=== PATIENT | male | born 1970 | race African-American/Black ===

== ENCOUNTER 2017-03-22 00:02 | Inpatient (IN) | payer MEDICAID ==
[~2017-03-22] VITALS: Ht 190.5 cm; Wt 163.3 kg
[~2017-03-22 00:02] MED LIST: ANTIVIRALS; EMTR1TAB11 PO; GABA-290 PO; RALT400T PO
[2017-03-22] MEDS ORDERED: MORPHINE SULFATE 4 MG/ML CPJ (NOT FOR IM USE) IV STA (04:26)
[2017-03-22] MEDS ORDERED: SODIUM CHLORIDE 0.9% 1,000 ML IV ONE (04:26)
[2017-03-22 04:57] LABS: CLARITY URINE CLOUDY (CLEAR); COLOR URINE ORANGE (YELLOW); GLUCOSE URINE TRACE (NEGATIVE); KETONES URINE NEGATIVE (NEGATIVE); LEUKOCYTE ESTERASE URINE 2+ (NEGATIVE); NITRITE URINE POSITIVE (NEGATIVE); OCCULT BLOOD URINE 3+ (NEGATIVE); PH URINE 5.5 (4.5-8.0); PROTEIN URINE 1+ (NEGATIVE); SPECIFIC GRAVITY URINE 1.028 (1.005-1.030); UROBILINOGEN URINE 0.2 E.U./dL (0.2-1.0)
[2017-03-22 04:58] LABS: INR 1.7; PROTHROMBIN TIME 18.1 sec (9.4-11.6)
[2017-03-22 05:00] LABS: BASOPHILS % 0.3 % (0.0-2.0); EOSINOPHILS % 0.4 % (0.0-5.0); LYMPHOCYTES % 16.6 % (20.0-50.0); MEAN PLATELET VOLUME 7.5 fl (7.4-10.4); MONOCYTES % 14.5 % (2.0-8.0); NEUTROPHILS % 68.2 % (40.0-76.0); PLATELET 71 x1000/uL (130-400); RED BLOOD CELL COUNT 2.58 mill/uL (4.7-6.1); RED CELL DISTRIBUTION WIDTH 15.7 % (11.6-14.6)
[2017-03-22 05:08] LABS: CARBON DIOXIDE 27 mEq/L (21-32); CHLORIDE 100 mEq/L (98-107)
[2017-03-22 05:22] LABS: HEMATOCRIT. 32.6 % (42.0-52.0); MEAN CORPUSCULAR HEMOGLOBIN 37.6 pg (28.0-32.0); MEAN CORPUSCULAR VOLUME 111.7 fL (80.0-94.0)
[2017-03-22 05:23] LABS: PLATELET ESTIMATE DECREASED
[2017-03-22 11:00] VITALS: BP 120/64
[2017-03-22] MEDS ORDERED: COMPLERA (11:37)
[2017-03-22] MEDS ORDERED: DOCU-138 PO (11:39)
[2017-03-22] MEDS ORDERED: DOXY100C2 PO (11:39)
[2017-03-22] MEDS ORDERED: HYDR-3280 MT (11:41)
[2017-03-22] MEDS ORDERED: ONDANSETRON HCL 4MG/2ML VIAL IV PRN (14:00)
[2017-03-22] MEDS ORDERED: CLONIDINE 0.1MG TABLET PO PRN (14:00)
[2017-03-22] MEDS ORDERED: IPRATROPIUM/ALBUTEROL 0.5-3(2.5)MG/3ML NEB INH PRN (14:00)
[2017-03-22] MEDS ORDERED: ACETAMINOPHEN 325MG TABLET PO PRN (14:00)
[2017-03-22] MEDS ORDERED: MORPHINE SULFATE 2 MG/ML CPJ (NOT FOR IM USE) IV PRN (14:00)
[2017-03-22] MEDS ORDERED: DIPHENHYDRAMINE 50MG/ML VIAL IV PRN (14:00)
[2017-03-22 15:07] LABS: HEPATITIS B SURFACE ANTIGEN NEGATIVE
[2017-03-22] MEDS: PANTOPRAZOLE SODIUM 40 MG/VIAL IV SCH (15:13)
[2017-03-22] MEDS: SODIUM CHLORIDE 0.9% 1,000 ML IV SCH (15:13)
[2017-03-22 15:36] LABS: HEPATITIS B CORE AB IGM NEGATIVE
[2017-03-22 15:37] LABS: HEPATITIS A AB IGM NEGATIVE (NEGATIVE)
[2017-03-22] MEDS: CEFTRIAXONE 1 G PREMIX 50 ML IV SCH (16:36)
[2017-03-22] MEDS ORDERED: RALTEGRAVIR 400MG TABLET PO SCH (17:00)
[2017-03-22] MEDS: RALTEGRAVIR 400MG TABLET PO SCH (18:30)
[2017-03-22 20:00] VITALS: BP 136/64
[2017-03-23] VITALS (13 sets, daily range): BP systolic 103–136; BP diastolic 51–67
[2017-03-23] MEDS: SODIUM CHLORIDE 0.9% 1,000 ML IV SCH ×2 (04:14→16:51)
[2017-03-23 05:52] LABS: PARTIAL THROMBOPLASTIN TIME 42.2 sec (23.4-31.0); PROTHROMBIN TIME 20.9 sec (9.4-11.6)
[2017-03-23 06:15] LABS: CARBON DIOXIDE 26 mEq/L (21-32); CHLORIDE 103 mEq/L (98-107); HDL CHOLESTEROL 13 mg/dL (40-59); LDL CHOLESTEROL 85 mg/dL (5-100)
[2017-03-23 07:25] LABS: BASOPHILS % 0.6 % (0.0-2.0); EOSINOPHILS % 1.5 % (0.0-5.0); HEMOGLOBIN. 10.1 g/dL (14.0-18.0); MEAN CORPUSCULAR HEMOGLOBIN 38.7 pg (28.0-32.0); MEAN CORPUSCULAR VOLUME 110.9 fL (80.0-94.0); MEAN PLATELET VOLUME 8.3 fl (7.4-10.4); MONOCYTES % 12.7 % (2.0-8.0); NEUTROPHILS % 56.2 % (40.0-76.0); PLATELET 78 x1000/uL (130-400); RED BLOOD CELL COUNT 2.61 mill/uL (4.7-6.1); RED CELL DISTRIBUTION WIDTH 15.4 % (11.6-14.6)
[2017-03-23] MEDS: PANTOPRAZOLE SODIUM 40 MG/VIAL IV SCH (09:00)
[2017-03-23] MEDS: DOCUSATE SODIUM 100MG CAPSULE PO SCH (09:00)
[2017-03-23] MEDS ORDERED: DOXYCYCLINE HYCLATE 100MG CAPSULE PO SCH (09:00)
[2017-03-23] MEDS: RALTEGRAVIR 400MG TABLET PO SCH (09:00)
[2017-03-23] MEDS ORDERED: MORPHINE SULFATE 4 MG/ML CPJ (NOT FOR IM USE) IV PRN (13:24)
[2017-03-23] MEDS: CEFTRIAXONE 1 G PREMIX 50 ML IV SCH (16:51)
[2017-03-23] MEDS: HYDROCODONE/ACETAMINOPHEN 5/325MG TABLET PO PRN (21:44)
[2017-03-23 22:00] LABS: INR 1.8; PARTIAL THROMBOPLASTIN TIME 36.5 sec (23.4-31.0)
[2017-03-24] VITALS (12 sets, daily range): BP systolic 98–133; BP diastolic 44–65
[2017-03-24 05:44] LABS: INR 1.8; PARTIAL THROMBOPLASTIN TIME 38.6 sec (23.4-31.0)
[2017-03-24 06:24] LABS: HEMOGLOBIN. 9.2 g/dL (14.0-18.0); MEAN CORPUSCULAR HEMOGLOBIN 39.8 pg (28.0-32.0); MEAN CORPUSCULAR VOLUME 112.9 fL (80.0-94.0); MEAN PLATELET VOLUME 7.4 fl (7.4-10.4); PLATELET 82 x1000/uL (130-400); RED CELL DISTRIBUTION WIDTH 15.2 % (11.6-14.6)
[2017-03-24 06:38] LABS: CARBON DIOXIDE 26 mEq/L (21-32); CHLORIDE 104 mEq/L (98-107)
[2017-03-24] MEDS: DOCUSATE SODIUM 100MG CAPSULE PO SCH (09:00)
[2017-03-24] MEDS: RALTEGRAVIR 400MG TABLET PO SCH (09:00)
[2017-03-24] MEDS ORDERED: IOHEXOL-300 100 ML BOTTLE ONE (09:49)
[2017-03-24] MEDS ORDERED: SIMETHICONE 40 MG/0.6 ML 30ML ONE (09:49)
[2017-03-24] MEDS: PANTOPRAZOLE SODIUM 40 MG/VIAL IV SCH (09:54)
[2017-03-24] MEDS ORDERED: MIDAZOLAM HCL 2 MG/2 ML VIAL ONE (10:57)
[2017-03-24] MEDS ORDERED: FENTANYL CITRATE/PF 50MCG/ML 2ML VIAL ONE (10:57)
[2017-03-24] MEDS ORDERED: MEPERIDINE HCL/PF 25MG/ML CPJ IV PRN (11:45)
[2017-03-24] MEDS ORDERED: ONDANSETRON HCL 4MG/2ML VIAL IV PRN (11:45)
[2017-03-24] MEDS ORDERED: HYDROMORPHONE HCL/PF 2MG/ML CPJ IV PRN (11:45)
[2017-03-24] MEDS ORDERED: LABETALOL HCL 20MG/4ML CARPUJECT IV PRN (11:45)
[2017-03-24] MEDS ORDERED: LIDOCAINE HCL 1% 20ML VIAL (Pyxis) INJ ONE (11:50)
[2017-03-24] MEDS ORDERED: NEOSTIGMINE METHYLSULFATE 1MG/ML 10 ML VIAL ONE (11:50)
[2017-03-24] MEDS ORDERED: SUCCINYLCHOLINE CHLORIDE 200MG/10ML VIAL IV ONE (11:50)
[2017-03-24] MEDS ORDERED: GLYCOPYRROLATE 0.2 MG/ML 2ML VIAL ONE (11:50)
[2017-03-24] MEDS ORDERED: PROPOFOL 200MG/20ML VIAL IV ONE (11:50)
[2017-03-24] MEDS ORDERED: ROCURONIUM BROMIDE 10MG/ML VIAL 5ML IV ONE (11:50)
[2017-03-24] MEDS ORDERED: DEXAMETHASONE 4MG/ML 1ML VIAL ONE (11:52)
[2017-03-24] MEDS: CEFTRIAXONE 1 G PREMIX 50 ML IV SCH (18:28)
[2017-03-24] MEDS: HYDROCODONE/ACETAMINOPHEN 5/325MG TABLET PO PRN (23:29)
[2017-03-25] VITALS: BP 86/37
[2017-03-25 04:00] VITALS: BP 105/41
[2017-03-25 06:58] LABS: HEMATOCRIT. 26.2 % (42.0-52.0); HEMOGLOBIN. 9.2 g/dL (14.0-18.0); MEAN CORPUSCULAR HEMOGLOBIN 39.4 pg (28.0-32.0); MEAN CORPUSCULAR VOLUME 112.2 fL (80.0-94.0); MEAN PLATELET VOLUME 7.6 fl (7.4-10.4); PLATELET 83 x1000/uL (130-400); RED BLOOD CELL COUNT 2.33 mill/uL (4.7-6.1); RED CELL DISTRIBUTION WIDTH 15.9 % (11.6-14.6)
[2017-03-25] MEDS: SODIUM CHLORIDE 0.9% 1,000 ML IV SCH (07:09)
[2017-03-25 07:12] VITALS: BP 99/36
[2017-03-25 08:22] LABS: CARBON DIOXIDE 26 mEq/L (21-32); CHLORIDE 103 mEq/L (98-107)
[2017-03-25] MEDS: PANTOPRAZOLE SODIUM 40 MG/VIAL IV SCH (08:41)
[2017-03-25] MEDS: DOCUSATE SODIUM 100MG CAPSULE PO SCH (08:41)
[2017-03-25 08:57] LABS: PLATELET ESTIMATE DECREASED
[2017-03-25] MEDS ORDERED: NON FORMULARY PATIENT HOME MED EA XX SCH (09:00)
[2017-03-25] MEDS: RALTEGRAVIR 400MG TABLET PO SCH (09:00)
[2017-03-25 11:49] VITALS: BP 96/39
[2017-03-25] MEDS ORDERED: SODIUM CHLORIDE 0.9% 500 ML IV NR (12:15)
[2017-03-25 12:48] LABS: PLATELET ESTIMATE DECREASED
[2017-03-25] MEDS: HYDROCODONE/ACETAMINOPHEN 5/325MG TABLET PO PRN (15:13)
[2017-03-25 16:00] VITALS: BP 105/47
[2017-03-25] MEDS: CEFTRIAXONE 1 G PREMIX 50 ML IV SCH (16:12)
[2017-03-25 18:10] VITALS: BP 105/47
== END 2017-03-25 19:19 | disposition home or self-care (01) ==
LOC: ER 00:03 → ENRESERV 09:52 → 6EST 10:35
PROVIDERS: ADMIT Internal Medicine; ATTEND Internal Medicine
PROC: BF101ZZ Fluoroscopy of Bile Ducts using Low Osmolar Contrast (ICD-10-PCS; 2017-03-24)
PROC: 0F798ZZ Dilation of Common Bile Duct, Via Natural or Artificial Opening Endoscopic (ICD-10-PCS; 2017-03-24)
PROC: 0DB68ZX Excision of Stomach, Via Natural or Artificial Opening Endoscopic, Diagnostic (ICD-10-PCS; principal; 2017-03-24 10:30)
DX: K80.71 Calculus of gallbladder and bile duct without cholecystitis with obstruction (principal); E43 Unspecified severe protein-calorie malnutrition; D61.818 Other pancytopenia; D68.4 Acquired coagulation factor deficiency; I85.00 Esophageal varices without bleeding; I95.9 Hypotension, unspecified; K85.90 Acute pancreatitis without necrosis or infection, unspecified; K76.6 Portal hypertension; D69.59 Other secondary thrombocytopenia; I50.9 Heart failure, unspecified; K74.60 Unspecified cirrhosis of liver; N39.0 Urinary tract infection, site not specified; B18.2 Chronic viral hepatitis C; K31.89 Other diseases of stomach and duodenum; E78.5 Hyperlipidemia, unspecified; E66.9 Obesity, unspecified; K83.8 Other specified diseases of biliary tract; R74.0 Nonspecific elevation of levels of transaminase and lactic acid dehydrogenase [LDH]; K86.89 Other specified diseases of pancreas; Z79.899 Other long term (current) drug therapy; Z90.49 Acquired absence of other specified parts of digestive tract
CPT/HCPCS: 36415; 74176; 74330; 76705; 78227; 80053; 80061; 81001; 82105; 82248; 83605; 83690; 85025; 85610; 85730; 86592; 86705; 86709; 86803; 86850; 86900; 86927; 87040; 87086; 87186; 87340; 96361; 96374; 99285; A9537; C1726; C1769; C9113; J0330; J0696; J1100; J2250; J2270; J2405; J2704; J2710; J3010; J3490; J7030; J7040; J7050; P9017; Q9967

== ENCOUNTER 2019-01-30 23:03 | Emergency (ER) | payer MEDICAID ==
[~2019-01-30] VITALS: Ht 188 cm; Wt 155.0 kg
[~2019-01-30 23:03] MED LIST changes: +COMPLERA; +DOCU-138 PO; +DOXY100C2 PO; +HYDR-3280 MT
[2019-01-31] MEDS ORDERED: KETOROLAC 30MG/ML VIAL IV STA (00:38)
[2019-01-31] MEDS ORDERED: FUROSEMIDE 40MG/4ML VIAL IV ONE (00:45)
[2019-01-31] MEDS ORDERED: MAGNESIUM HYDROXIDE 400MG/5ML 30ML UDC PO ONE (00:45)
[2019-01-31 01:01] LABS: HEMATOCRIT. 29.1 %; HEMOGLOBIN. 10.1 g/dL; MEAN CORPUSCULAR HEMOGLOBIN 38.1 pg; MEAN CORPUSCULAR VOLUME 109.7 fL; MEAN PLATELET VOLUME 6.8 fl (7.4-10.4); PLATELET 113 x1000/uL (130-400); RED BLOOD CELL COUNT 2.66 mill/uL; RED CELL DISTRIBUTION WIDTH 13.9 % (11.6-14.6)
[2019-01-31 01:08] LABS: CHLORIDE 97 mEq/L
[2019-01-31 01:49] LABS: PLATELET ESTIMATE DECREASED
[2019-02-01 09:11] LABS: ABSOLUTE BASOPHILS 0.1 x10E3/uL (.); ABSOLUTE EOSINOPHILS 0.1 x10E3/uL (.); ABSOLUTE LYMPHOCYTES 1.4 x10E3/uL (.); ABSOLUTE MONOCYTES 0.8 x10E3/uL (.); ABSOLUTE NEUTROPHILS 3.1 x10E3/uL (.); BASOPHILS 1 % (Not Estab.); HEMATOCRIT 27.6 % (.); HEMATOLOGY COMMENT Note: (.); HEMOGLOBIN 9.6 g/dL (.); LYMPHOCYTES 26 % (Not Estab.); MEAN CORPUSCULAR HEMOGLOBIN 36.4 pg (.); MEAN CORPUSCULAR HGB CONC. 34.8 g/dL (.); MEAN CORPUSCULAR VOLUME 105 fL (.); MONOCYTES 14 % (Not Estab.); NEUTROPHILS 54 % (Not Estab.); PLATELETS 128 x10E3/uL (150-450); RBC 2.64 x10E6/uL (.); RED CELL DISTRIBUTION WIDTH 14.2 % (.); WBC 5.4 x10E3/uL (3.4-10.8)
[2019-02-01 13:12] LABS: % CD 3 POS. LYMPHOCYTES 71.7 % (57.5-86.2); % CD 4 POS. LYMPHOCYTES 32.3 % (30.8-58.5); % CD 8 POS. LYMPH 38.1 % (12.0-35.5); ABSOLUTE CD 3 1004 /uL (622-2402); ABSOLUTE CD 4 HELPER 452 /uL (359-1519); ABSOLUTE CD 8 SUPPRESSOR 533 /uL (109-897); CD4/CD8 RATIO 0.85 (0.92-3.72)
[2019-02-01 14:25] VITALS: BP 143/68
[2019-02-06 13:06] LABS: *HIV-1 RNA BY PCR 340 copies/mL (.)
== END 2019-02-01 14:29 | disposition home or self-care (01) ==
LOC: ER 23:03
DX: K59.00 Constipation, unspecified (principal); I50.9 Heart failure, unspecified; R26.2 Difficulty in walking, not elsewhere classified; Z91.14 Patient's other noncompliance with medication regimen; E66.01 Morbid (severe) obesity due to excess calories; Z68.41 Body mass index [BMI] 40.0-44.9, adult
CPT/HCPCS: 71045; 96374; 96375; 99284